=== PATIENT | male | born 1995 | race Caucasian/White ===

== ENCOUNTER → 2022-06-11 | Outpatient (CLI) | payer OTHER | LOC: MHCPAIN 09:56 | DX: M47.897 Other spondylosis, lumbosacral region (principal); M54.50 Low back pain, unspecified; M53.3 Sacrococcygeal disorders, not elsewhere classified | CPT/HCPCS: G0463 ==

== ENCOUNTER → 2022-07-11 | Outpatient (CLI) | payer OTHER | LOC: MHCPAIN 07:59 | DX: M47.817 Spondylosis without myelopathy or radiculopathy, lumbosacral region (principal); M54.50 Low back pain, unspecified; M53.3 Sacrococcygeal disorders, not elsewhere classified ==

== ENCOUNTER → 2023-01-09 | Outpatient (CLI) | payer OTHER | LOC: MHCPAIN 08:36 | DX: M47.817 Spondylosis without myelopathy or radiculopathy, lumbosacral region (principal); M54.50 Low back pain, unspecified | CPT/HCPCS: J0665; J1100; J2250; J3010 ==